=== PATIENT | female | born 1980 | race Caucasian/White ===

== ENCOUNTER 2019-08-03 11:11 | Inpatient (IN) | payer OTHER ==
[2019-08-07 18:32] LABS: ABSOLUTE BASOPHILS # (AUTO) 0.1 10^3/uL (0.0-0.2); ABSOLUTE EOSINOPHILS # (AUTO) 0.1 10^3/uL (0.0-0.6); ABSOLUTE LYMPHOCYTES (AUTO) 1.6 10^3/uL (0.5-4.7); ABSOLUTE MONOCYTES (AUTO) 0.7 10^3/uL (0.1-1.4); ABSOLUTE NEUT (AUTO) 9.3 10^3/uL (1.7-8.2); BASOPHILS % (AUTO) 1.1 % (0-2); EOSINOPHILS % (AUTO) 0.5 % (0-6); HEMATOCRIT 31.5 % (36.0-47.0); HEMOGLOBIN 10.5 g/dL (12.0-15.5); LYMPHOCYTES % (AUTO) 13.4 % (13-45); MEAN CORPUSCULAR HEMOGLOBIN 29.4 pg (27.0-33.4); MEAN CORPUSCULAR HGB CONC 33.4 g/dL (32.0-36.0); MEAN CORPUSCULAR VOLUME 88 fl (80-97); MONOCYTES % (AUTO) 6.3 % (3-13); PLATELET COUNT 263 10^3/uL (150-450); RED BLOOD COUNT 3.57 10^6/uL (3.72-5.28); RED CELL DISTRIBUTION WIDTH 14.3 % (11.5-14.0); SEGMENTED NEUTROPHILS % (AUTO) 78.7 % (42-78); TOTAL CELLS COUNTED % (AUTO) 100 %; WHITE BLOOD COUNT 11.9 10^3/uL (4.0-10.5)
[2019-08-07 18:33] LABS: APPEARANCE,URINE SLIGHTLY-CLOUDY; BILIRUBIN,URINE NEGATIVE (NEGATIVE); COLOR,URINE YELLOW; GLUCOSE, URINE NEGATIVE (NEGATIVE); KETONES,URINE NEGATIVE (NEGATIVE); LEUKOCYTE ESTERASE,URINE NEGATIVE (NEGATIVE); NITRITE,URINE NEGATIVE (NEGATIVE); PROTEIN,URINE NEGATIVE (NEGATIVE); URINE SPECIFIC GRAVITY 1.014; UROBILINOGEN,URINE NEGATIVE mg/dL (<2.0)
[2019-08-07 18:54] LABS: URINE AMPHETAMINES SCREEN NEGATIVE; URINE BARBITURATES SCREEN NEGATIVE; URINE BENZODIAZEPINES SCREEN NEGATIVE; URINE COCAINE SCREEN NEGATIVE; URINE MARIJUANA (THC) SCREEN NEGATIVE; URINE METHADONE SCREEN NEGATIVE; URINE PHENCYCLIDINE SCREEN NEGATIVE
[2019-08-07] MEDS ORDERED: DINOPROSTONE 10 MG VAGINAL INSERT.SR ONE (20:28)
--- NOTE | 2019-08-07 21:23 | Admission Physical ---
Datetime Report Generated by CPN: 08/07/2019 21:23 CURRENT ADMISSION Chief Complaint: Scheduled Induction of Labor Indication for Induction: Post Dates Admit Impression : Term, Intrauterine Admit Plan: Admit to Unit; Initiate Labor Induction Protocol ALLERGIES Medication Allergies: No Medication Allergies: No Known Allergies (08/07/2019) Latex: No Latex Allergies OBSTETRICAL HISTORY EDC: 07/31/2019 00:00 : 8 Para: 2 SAB: 2 IAB: 2 Livin Gestational Diabetes: No Rh Sensitization: No Incompetent Cervix: No JOSE L: No Infertility: No ART Treatment: No Uterine Anomaly: No IUGR: No Hx Previous C/S: No Macrosomia: No Hx Loss/Stillborn: No PIH: No Hx : No Placenta Previa/Abruption: No Depression/PP Depression: No PTL/PROM: No Post Hemorrhage: No Current Procedures: Ultrasound; NST Obstetrical History Comments: tonsilectomy, breast reduction, LSO ectopic, Leep 2007, Cryo 96 SEE RECORDS Alcohol: No Marijuana : No Cocaine: No Other Illicit Drugs: No Cigarettes: Former Smoker. [id number] MEDICAL HISTORY Diabetes: No Blood Transfusion: No Pulmonary Disease (Asthma, TB): No Breast Disease: No Hypertension: No Stave Bolt Equalizer Surgery: No Heart Disease: No Hosp/Surgery: No Autoimmune Disorder: No Anesthetic Complications: No Kidney Disease: No Abnormal Pap Smear: No Neuro/Epilepsy: No Psychiatric Disorders: No Other Medical Diseases: No Hepatitis/Liver Disease: No Significant Family History: No Varicosities/Phlebitis: No Trauma/Violence : No Thyroid Dysfunction: No INFECTIOUS HISTORY Gonorrhea: No Genital Herpes: No Chlamydia: No Tuberculosis: No Syphilis: No Hepatitis: No HIV/AIDS Exposure: No Rash or Viral Illness: No HPV: No PHYSICAL EXAM General: Normal HEENT: Normal Neurologic: Normal Thyroid: Normal Heart: Normal Lungs: Normal Breast: Normal Back: Normal Abdomen: Normal Genitourinary Exam: Normal Extremities: Normal DTRs: Normal Pelvic Type: Adequate Vital Signs: Reviewed; Within Normal Limits VAGINAL EXAM Dilatation: closed Effacement: 50 Station: -3 Contraction Comments: irregular MEMBRANES Membranes: Ruptured FETUS A EGA: 41.0 Monitoring: External US FHR- Baseline: 140s Variability: Moderate 6-25bpm Accelerations: 15X15 Decelerations: Late FHR Category: Category I Admit Comment: presents to L_D for a scheduled labor induction for postdates. She is GBS Pos. she reports good movement. Her cervix is closed. The plan is for cervidil. She had (2) prolonged decels with good recovery. Cervidil placed to see if fetus tolerates her labor. PLANS FOR LABOR AND DELIVERY Pain Management: Epidural Feeding Preference: Formula Circumcision: Yes INFORMED CONSENT Signature: with User ID: [email or web address]
[2019-08-07] MEDS ORDERED: DINOPROSTONE 10 MG VAGINAL INSERT.SR PV PRN (21:32)
[2019-08-07] MEDS ORDERED: RINGERS SOLUTION,LACTATED 300 ML IV ONE (21:32)
[2019-08-07] MEDS ORDERED: RINGERS SOLUTION,LACTATED 1,000 ML IV PRN (21:32)
[2019-08-08] MEDS ORDERED: LIDOCAINE 1% INJ-PF (10 MG/ML) 30 ML SDV ONE (08:45)
[2019-08-08] MEDS ORDERED: MISOPROSTOL 0.2 MG TABLET ONE (08:45)
[2019-08-08] MEDS ORDERED: OXYTOCIN 10 UNIT/ML VIAL ONE ×2 (08:45→10:04)
[2019-08-08] MEDS ORDERED: OXYTOCIN/NORMAL SALINE 20 UNIT/1,000 ML RTUINJ ONE (08:46)
[2019-08-08] MEDS ORDERED: CITRIC ACID/SODIUM CITRATE ORAL SOLN 15 ML UDCUP ONE (09:53)
[2019-08-08] MEDS ORDERED: CEFAZOLIN INJ 1 GM VIAL ONE (09:53)
[2019-08-08] MEDS ORDERED: KETOROLAC TROMETHAMINE INJ/PF 30 MG/1 ML SDV ONE (10:04)
[2019-08-08] MEDS ORDERED: MEASLES,MUMPS&RUBELLA VACC/PF 0.5 ML VIAL SUBCUT PRN (10:05)
[2019-08-08] MEDS ORDERED: PHENYLEPHRINE HCL INJ/PF 10 MG/1 ML SDV ONE (10:05)
[2019-08-08] MEDS ORDERED: FENTANYL CITRATE INJ/PF 100 MCG/2 ML AMPUL ONE (10:05)
[2019-08-08] MEDS ORDERED: OXYTOCIN/NORMAL SALINE 20 UNIT/1,000 ML RTUINJ IV PRN (10:05)
[2019-08-08] MEDS ORDERED: HYDROMORPHONE HCL INJ/PF 2 MG/ML AMPULE IV PRN (10:05)
[2019-08-08] MEDS ORDERED: RINGERS SOLUTION,LACTATED 1,000 ML IV PRN (10:05)
[2019-08-08] MEDS ORDERED: ACETAMINOPHEN 325 MG TABLET PO PRN (10:05)
[2019-08-08] MEDS ORDERED: SIMETHICONE 80 MG TAB.CHEW PO PRN (10:05)
[2019-08-08] MEDS ORDERED: ACETAMINOPHEN 1,000 MG/100 ML RTUPB IV ONE (10:05)
[2019-08-08] MEDS ORDERED: OXYCODONE-ACETAMINOPHEN 5-325 MG TABLET PO PRN (10:05)
[2019-08-08] MEDS ORDERED: ACETAMINOPHEN 1,000 MG/100 ML RTUPB IV PRN (10:05)
[2019-08-08] MEDS ORDERED: DIPH/PERTUSS(ACELL)/TETANUS VAC/PF 0.5 ML SYR (>=10YO) IM PRN (10:05)
[2019-08-08] MEDS ORDERED: PROMETHAZINE HCL INJ 25 MG/1 ML VIAL IV PRN (10:05)
[2019-08-08] MEDS ORDERED: FAMOTIDINE INJ/PF 20 MG/2 ML SDV IV ONE (10:27)
--- NOTE | 2019-08-08 11:27 | Operative Report ---
Operative Report DATE OF SURGERY: 08/08/19 PREOPERATIVE DIAGNOSIS: decelerations with contractions POSTOPERATIVE DIAGNOSIS: Same persistent occiput posterior presentation and very short umbilical cord OPERATION: Primary via low transverse uterine incision SURGEON: MARTHA CUNNINGHAM ANESTHESIA: Spinal TISSUE REMOVED OR ALTERED: Placenta COMPLICATIONS: None ESTIMATED BLOOD LOSS: 250 cc INTRAOPERATIVE FINDINGS: Viable male PROCEDURE: Patient was taken to the OR and placed in supine position after her spinal anesthesia. She is prepared and draped in sterile fashion. Gillis was placed for drainage of the bladder. Low transverse incision was made and carried down the level of the fascia. The fascial incision was made with knife and extended bilaterally with curved Stone scissors. The fascia was off the rectus muscles using sharp and blunt dissection. The rectus muscles are in the midline. The peritoneum was entered without incident. Bladder blade was placed in uterine segment was identified. A low transverse incision was made creating a bladder flap. Bladder blade was placed low transverse uterine incision was made with the knife and extended with fingertips. The baby was delivered with some fundal pressure. Mouth and nose were suctioned free. The cord is doubly clamped and cut. Baby is passed off to the inventory analyst in attendance. The placenta was manually extracted with trailing membranes. The uterus was externalized wrapped in a moist lap sponge. Uterine contents wiped free. Uterus was closed with a running locking layer of 0 chromic suture using the second layer to imbricate the first completing a double layer closure of the uterus. The serosa was closed with a running 2-0 chromic stitch. The pelvis was irrigated and suctioned free of fluid the uterus was replaced in the abdomen. The abdominal wall peritoneum was closed with running 2-0 chromic stitch. Fascia was closed with a running 0 Vicryl in 2 segments. Herve's layer was brought together with 0 plain gut stitch and the skin was closed with running subcuticular 4-0 undyed Vicryl stitch. The wound was dressed mother and baby did well.
[2019-08-08] MEDS ORDERED: METOCLOPRAMIDE HCL INJ/PF 10 MG/2 ML SDV ONE (11:53)
[2019-08-08] MEDS ORDERED: MEPERIDINE HCL/PF INJ 25 MG/1 ML DISP.SYRIN ONE (12:05)
[2019-08-08] MEDS ORDERED: MORPHINE SULFATE 10 MG/ML INJ ONE (13:16)
[2019-08-08] MEDS: OXYCODONE-ACETAMINOPHEN 5-325 MG TABLET PO PRN ×2 (14:42→21:22)
[2019-08-08] MEDS: DOCUSATE SODIUM 100 MG CAPSULE PO SCH (17:25)
[2019-08-08] MEDS: KETOROLAC TROMETHAMINE INJ/PF 30 MG/1 ML SDV IV SCH (18:32)
[2019-08-09] MEDS: KETOROLAC TROMETHAMINE INJ/PF 30 MG/1 ML SDV IV SCH ×2 (01:07→09:50)
[2019-08-09] MEDS: OXYCODONE-ACETAMINOPHEN 5-325 MG TABLET PO PRN ×4 (02:57→20:30)
[2019-08-09 08:15] LABS: HEMATOCRIT 25.7 % (36.0-47.0); HEMOGLOBIN 8.7 g/dL (12.0-15.5); MEAN CORPUSCULAR HEMOGLOBIN 29.9 pg (27.0-33.4); MEAN CORPUSCULAR HGB CONC 33.7 g/dL (32.0-36.0); MEAN CORPUSCULAR VOLUME 89 fl (80-97); PLATELET COUNT 193 10^3/uL (150-450); RED CELL DISTRIBUTION WIDTH 14.1 % (11.5-14.0); WHITE BLOOD COUNT 11.9 10^3/uL (4.0-10.5)
[2019-08-09] MEDS: PRENATAL VITAMIN W DHA CAPSULE PO SCH (09:50)
[2019-08-09] MEDS: DOCUSATE SODIUM 100 MG CAPSULE PO SCH ×2 (09:50→18:11)
[2019-08-09 12:37] LABS: HEPATITS B SURFACE ANTIGEN Negative (Negative)
--- NOTE | 2019-08-09 12:56 | PDOC PROGRESS REPORT ---
Subjective-OB Progress Note for:: 08/09/19 Subjective: 38yo G8 now P4 s/p primary ppd1. Ambulating and voiding without difficulty. Reports bleeding stable, pain well controlled with medication, no concerns at this time. Physical Exam (OB) Vital Signs: Temp Pulse Resp BP Pulse Ox 98 F 89 16 121/74 99 08/09/19 11:53 08/09/19 11:53 08/09/19 11:53 08/09/19 11:53 08/09/19 11:53 Intake & Output 08/08/19 08/09/19 08/10/19 06:59 06:59 06:59 Output Total 2250 Balance -2250 Weight 98.8 kg - General General Appearance: Appears well In distress: None - PIH/Pre-Eclampsia DTR's: 1 + Clonus: Negative Headache: Absent Epigastric Pain: No Visual Changes: No - Dressing Removed: No Incision: Dressing Closure Type: op site - Lochia Lochia Amount: Scant < 10 ml Lochia Color: Rubra/Red - Abdomen Description: Soft, Round Hernia Present: No Fundal Description: Firm, Midline Fundal Height: u/u - u/2 - Respiratory Respiratory Status: No respiratory distress - Extremities Upper extremity: Normal inspection Lower extremities: Normal inspection - Neurological Cognition: Normal Orientation: AAOx4 - Psychological Associated symptoms: Normal affect, Normal mood Objective-Diagnostic Laboratory: 08/09/19 07:24 08/09/19 07:24 WBC 11.9 H RBC 2.90 L Hgb 8.7 L Hct 25.7 L MCV 89 MCH 29.9 MCHC 33.7 RDW 14.1 H Plt Count 193 Assessment and Plan(PN) - Assessment and Plan (1) Acute blood loss anemia Is this a current diagnosis for this admission?: Yes Plan: increase dietary iron and FeSO4 BID (2) Anemia complicating , third trimester Is this a current diagnosis for this admission?: Yes Plan: increase dietary iron and FeSO4 BID, consider iron infusion today depending on how she does during the day (3) Encounter for induction of labor Is this a current diagnosis for this admission?: Yes Plan: delivered (4) Non-reassuring electronic monitoring tracing Is this a current diagnosis for this admission?: Yes Plan: delivered, baby doing well and in room with parents (5) S/P primary low transverse Is this a current diagnosis for this admission?: Yes Plan: Routine pp care and continue to monitor for s/s of infection (6) Short umbilical cord, delivered, current hospitalization Is this a current diagnosis for this admission?: Yes Plan: delivered - Time Spent with Patient Time with patient: 15-25 minutes Medications reviewed and adjusted accordingly: Yes - Disposition Anticipated Discharge: Home Within: within 24 hours
[2019-08-09] MEDS: IBUPROFEN 800 MG TABLET PO SCH ×2 (14:10→20:28)
[2019-08-10] MEDS: OXYCODONE-ACETAMINOPHEN 5-325 MG TABLET PO PRN (02:30)
[2019-08-10] MEDS: IBUPROFEN 800 MG TABLET PO SCH ×2 (02:30→09:25)
--- NOTE | 2019-08-10 09:09 | PDOC PROGRESS REPORT ---
Subjective-OB Progress Note for:: 08/10/19 Subjective: Ready to go home. Physical Exam (OB) Vital Signs: Temp Pulse Resp BP Pulse Ox 98.2 F 91 16 107/65 98 08/10/19 07:34 08/10/19 07:34 08/10/19 07:34 08/10/19 07:34 08/10/19 07:34 Intake & Output 08/09/19 08/10/19 08/11/19 06:59 06:59 06:59 Intake Total 450 Output Total 2250 Balance -2250 450 - PIH/Pre-Eclampsia DTR's: 1 + Clonus: Negative Headache: Absent Epigastric Pain: No Visual Changes: No - Dressing Removed: - has honeycomb dsg Incision: Well Approximated Closure Type: op site - Lochia Lochia Amount: Scant < 10 ml Lochia Color: Rubra/Red - Abdomen Description: Tender, Soft, Round Hernia Present: No Bowel Sounds: Normoactive Flatus Presence: Present Stool: No Fundal Description: Firm, Midline Fundal Height: u/u - u/2 Objective-Diagnostic Laboratory: 08/09/19 07:24 Assessment and Plan(PN) - Time Spent with Patient Medications reviewed and adjusted accordingly: Yes - Disposition Anticipated Discharge: Home
--- NOTE | 2019-08-10 09:22 | PDOC DISCHARGE SUMMARY ---
Impression - Admit/DC Date/PCP Admission Date/Primary Care Provider: 08/07/19 17:40 NEDA MONTOYA MD Discharge Date: 08/10/19 - Discharge Diagnosis (1) Acute blood loss anemia Is this a current diagnosis for this admission?: Yes (2) Anemia complicating , third trimester Is this a current diagnosis for this admission?: Yes (3) Encounter for induction of labor Is this a current diagnosis for this admission?: Yes (4) Non-reassuring electronic monitoring tracing Is this a current diagnosis for this admission?: Yes (5) S/P primary low transverse Is this a current diagnosis for this admission?: Yes (6) Short umbilical cord, delivered, current hospitalization Is this a current diagnosis for this admission?: Yes - Additional Information Resuscitation Status: Full Code Discharge Diet: Regular Discharge Activity: Activity As Tolerated, Balance Activity w/Rest, No Lifting Over 10 Pounds, No Lifting/Push/Pulling, Non-Ambulatory Child, Pelvic Rest, Slowly Increase Activity, No tub bath Referrals: NEDA MONTOYA MD [Primary Care Provider] - Prescriptions: Oxycodone HCl/Acetaminophen [Percocet 5-325 mg Tablet] 1 tab PO Q4HP PRN #20 tablet PRN Reason: Docusate Sodium [Colace 100 mg Capsule] 100 mg PO BID #30 capsule Ferrous Sulfate 325 mg PO BID #60 tablet. Ibuprofen [Motrin 800 mg Tablet] 800 mg PO Q6A #30 tablet Home Medications: Omeprazole/Sodium Bicarbonate [Omeppi 40 mg-1,100 mg Capsule] 1 each PO BID 08/07/19 Docusate Sodium [Colace 100 mg Capsule] 100 mg PO BID #30 capsule 08/10/19 Ferrous Sulfate 325 mg PO BID #60 tablet. 08/10/19 Ibuprofen [Motrin 800 mg Tablet] 800 mg PO Q6A #30 tablet 08/10/19 Oxycodone HCl/Acetaminophen [Percocet 5-325 mg Tablet] 1 tab PO Q4HP PRN #20 tablet 08/10/19 HPI Gestational Age: 41.0 wks Reason(s) for Admission: Induction of Labor Procedures: Ultrasound Intrapartum Procedure(s): : Low Cervical, Transverse Results Laboratory Results: WBC 11.9 10^3/uL (4.0-10.5) H 08/09/19 07:24 RBC 2.90 10^6/uL (3.72-5.28) L 08/09/19 07:24 Hgb 8.7 g/dL (12.0-15.5) L 08/09/19 07:24 Hct 25.7 % (36.0-47.0) L 08/09/19 07:24 MCV 89 fl (80-97) 08/09/19 07:24 MCH 29.9 pg (27.0-33.4) 08/09/19 07:24 MCHC 33.7 g/dL (32.0-36.0) 08/09/19 07:24 RDW 14.1 % (11.5-14.0) H 08/09/19 07:24 Plt Count 193 10^3/uL (150-450) 08/09/19 07:24 Lymph % (Auto) 13.4 % (13-45) 08/07/19 18:15 [place] % (Auto) 6.3 % (3-13) 08/07/19 18:15 Eos % (Auto) 0.5 % (0-6) 08/07/19 18:15 Baso % (Auto) 1.1 % (0-2) 08/07/19 18:15 Absolute Neuts (auto) 9.3 10^3/uL (1.7-8.2) H 08/07/19 18:15 Absolute Lymphs (auto) 1.6 10^3/uL (0.5-4.7) 08/07/19 18:15 Absolute Monos (auto) 0.7 10^3/uL (0.1-1.4) 08/07/19 18:15 Absolute Eos (auto) 0.1 10^3/uL (0.0-0.6) 08/07/19 18:15 Absolute Basos (auto) 0.1 10^3/uL (0.0-0.2) 08/07/19 18:15 Seg Neutrophils % 78.7 % (42-78) H 08/07/19 18:15 Urine Color YELLOW 08/07/19 18:15 Urine Appearance SLIGHTLY-CLOUDY 08/07/19 18:15 Urine pH 7.0 (5.0-9.0) 08/07/19 18:15 Ur Specific [place] 1.014 08/07/19 18:15 Urine Protein NEGATIVE mg/dL (NEGATIVE) 08/07/19 18:15 Urine Glucose (UA) NEGATIVE mg/dL (NEGATIVE) 08/07/19 18:15 Urine Ketones NEGATIVE mg/dL (NEGATIVE) 08/07/19 18:15 Urine Blood NEGATIVE (NEGATIVE) 08/07/19 18:15 Urine Nitrite NEGATIVE (NEGATIVE) 08/07/19 18:15 Urine Bilirubin NEGATIVE (NEGATIVE) 08/07/19 18:15 Urine Urobilinogen NEGATIVE mg/dL (<2.0) 08/07/19 18:15 Ur Leukocyte Esterase NEGATIVE (NEGATIVE) 08/07/19 18:15 Urine Ascorbic Acid NEGATIVE (NEGATIVE) 08/07/19 18:15 Urine Opiates Screen NEGATIVE 08/07/19 18:15 Urine Methadone Screen NEGATIVE 08/07/19 18:15 Ur Barbiturates Screen NEGATIVE 08/07/19 18:15 Ur Phencyclidine Scrn NEGATIVE 08/07/19 18:15 Ur Amphetamines Screen NEGATIVE 08/07/19 18:15 U Benzodiazepines Scrn NEGATIVE 08/07/19 18:15 Urine Cocaine Screen NEGATIVE 08/07/19 18:15 U Marijuana (THC) Screen NEGATIVE 08/07/19 18:15 RPR NONREACTIVE (NONREACTIVE) 08/07/19 18:15 Hep Bs Antigen Negative (Negative) 08/07/19 18:15 Rubella IgG Antibody 37.20 IU/mL 08/07/19 18:15 Rubella IgG Ab Interp POSITIVE 08/07/19 18:15 Blood Type A POSITIVE 08/07/19 18:15 Antibody Screen NEGATIVE 08/07/19 18:15 Plan Plan of Treatment: Follow up at [facility] in 1 wk. Pelvic rest x 4-6 wks. Time Spent: Less than 30 Minutes
[2019-08-10] MEDS: DOCUSATE SODIUM 100 MG CAPSULE PO SCH (09:25)
[2019-08-10] MEDS: PRENATAL VITAMIN W DHA CAPSULE PO SCH (09:26)
[2019-08-10 10:23] VITALS: BP 118/72
--- NOTE | 2019-08-11 12:26 | Delivery Summary ---
Del Sum A-C Datetime Report Generated by CPN: 08/11/2019 12:26 DELIVERY PERSONNEL DELIVERY PERSONNEL: [id number] Delivery Doctor:: Maria Fernanda Pike MD Delivery Doctor:: Maria Fernanda Pike MD Anesthesiologist:: Ruba Welch MD Anesthesiologist:: Ruba Welch MD EDGER MACHINE SETTER:: chela harp label tacker EDGER MACHINE SETTER:: Varsha SAPIN EDGER MACHINE SETTER Labor and Delivery Nurse:: Aden PEÑALOZA RN Crook Operator:: david peñaloza Crook Operator:: Aden PEÑALOZA RN Nursery Nurse:: diane zaidi Nursery Nurse:: Becky baker Exhibit Artist/CHEF MANAGER: Kati Johns, JEFF Exhibit Artist/CHEF MANAGER: Dalila Loyola CARD GAME OPERATOR Exhibit Artist/CHEF MANAGER: Attila JOHNS, ST MATERNAL INFORMATION Delivery Anesthesia: Spinal Medications After Delivery: Pitocin Drip 20 Units/1000ml NSS Delivery QBL: 635 Maternal Complications: None LABOR SUMMARY EDC: 07/31/2019 00:00 No. Babies in Womb: 1 Attempted: No Labor Anesthesia: None LABOR INFORMATION Reason for Induction: Post Dates; Other Reason for Induction- Other: AC LAG, ELECTIVE Cervical Ripening Agents: Cervidil Oxytocin: N/A Group B Beta Strep: neg Antibiotics # of Doses: 0 Steroids Given: None Reason Steroids Not Administered: Not Applicable MEMBRANES Membranes Rupture Method: Artificial Rupture of Membranes: 07/08/2019 10:32 Length of Rupture (hr): 745.15 Amniotic Fluid Color: Clear Amniotic Fluid Amount: Moderate Amniotic Fluid Odor: Normal STAGES OF LABOR Stage 3 hr: 0 Stage 3 min: 1 VAGINAL DELIVERY Episiotomy: None CSECTION DELIVERY Primary Indication: Nonreassuring Status CSection Urgency: Non-Scheduled CSection Incidence: Primary Labor: No Labor Elective: Nonelective CSection Incision: Lower Uterine Transverse CSection Incision: Lower Uterine Transverse BABY A INFORMATION Delivery Date/Time: 08/08/2019 10:41 Method of Delivery: Born in Route : No : N/A Vacuum Extraction: N/A Shoulder Dystocia : No PRESENTATION/POSITION BABY A Presentation: Cephalic Cephalic Presentation: Vertex Vertex Position: Left Occipital Posterior Breech Presentation: N/A PLACENTA INFORMATION BABY A Placenta Delivery Time : 08/08/2019 10:42 Placenta Method of Delivery: Manual Removal Placenta Status: Delivered SCORES BABY A Heart Rate 1 min: >100 bpm Resp Effort 1 min: Good Cry Reflex Irritability 1 min: Cough or Sneeze or Pulls Away Muscle Tone 1 min: Active Motion Color 1 min: Blue/Pale SCORE 1 MIN: 8 Heart Rate 5 min: >100 bpm Resp Effort 5 min: Good Cry Reflex Irritability 5 min: Cough or Sneeze or Pulls Away Muscle Tone 5 min: Active Motion Color 5 min: Body [place], Extremities Blue SCORE 5 MIN: 9 INFANT INFORMATION BABY A Gestational Age at Delivery: 41.0 Gestational Status: Late Term- 41- 41.6 Weeks Infant Outcome : Liveborn Infant Condition : Stable Sex: Male IDENTIFICATION BABY A Infant Verification Date/Time: 08/08/2019 12:00 ID Band Number: [id number] Mother's Name Verified: Yes RN Verifying : s minda Additional Verifying Personnel: Diane zaidi WEIGHT/LENGTH BABY A Infant Birthweight (gm): 3570 Infant Weight (lb): 7 Weight (oz): 14 Length (in): 21.00 Infant Length (cm): 53.34 CORD INFORMATION BABY A No. Cord Vessels: 3 Nuchal Cord : N/A Cord Blood Taken: Yes-For Storage (Mom's Blood type +) Infant Suction: None ASSESSMENT BABY A Infant Complications: Other Infant Complications- Other: MULTIPLE PROLONGED DECELS BABY B INFORMATION : N/A
== END 2019-08-10 12:28 | disposition home or self-care (01) | DRG 788 ==
LOC: LR 08-07 17:40 → 2S 08-08 13:24
PROVIDERS: ADMIT Obstetrics & Gynecology; ATTEND Obstetrics & Gynecology
PROC: 10D00Z1 Extraction of Products of Conception, Low, Open Approach (ICD-10-PCS; principal; 2019-08-08)
DX: O48.0 Post-term pregnancy (principal); O36.8330 Maternal care for abnormalities of the fetal heart rate or rhythm, third trimester, not applicable or unspecified; Z3A.41 41 weeks gestation of pregnancy; Z37.0 Single live birth; O99.013 Anemia complicating pregnancy, third trimester; O99.820 Streptococcus B carrier state complicating pregnancy
CPT/HCPCS: 1961; 36415; 80307; 81005; 85025; 85027; 86592; 86762; 86850; 86900; 86901; 87340; 94799; C1758; J0131; J0690; J1170; J1885; J2175; J2270; J2370; J2590; J2765; J3010; J3490; J7120; S0028

== ENCOUNTER → 2020-06-17 | Outpatient (CLI) | payer OTHER ==
--- NOTE | 2020-06-18 13:24 | RADIOLOGY REPORT (SQ) ---
EXAM DESCRIPTION: KNEE RIGHT 4 VIEWS IMAGES COMPLETED DATE/TIME: 06/17/2020 4:03 pm REASON FOR STUDY: PAIN IN RIGHT KNEE M25.561 PAIN IN RIGHT KNEE COMPARISON: None. NUMBER OF VIEWS: Four views. TECHNIQUE: AP, lateral, and both oblique radiographic images acquired of the right knee. LIMITATIONS: None. FINDINGS: MINERALIZATION: Normal. BONES: No acute fracture or dislocation. No worrisome bone lesions. JOINT: No effusion. SOFT TISSUES: No soft tissue swelling. No radio-opaque foreign body. OTHER: No other significant finding. IMPRESSION: NEGATIVE STUDY OF THE RIGHT KNEE. NO RADIOGRAPHIC EVIDENCE OF ACUTE INJURY. TECHNICAL DOCUMENTATION: JOB ID: [id number] 2010 [employer]- All Rights Reserved Reading location - IP/workstation name: [email or web address]
== END ==
LOC: RAD 15:26
PROVIDERS: ATTEND Nurse Practitioner Family
DX: M25.561 Pain in right knee (principal)